=== PATIENT | male | born 1975 | race Caucasian/White ===

== ENCOUNTER 2017-08-22 10:00 | Emergency (ER) | payer OTHER ==
[~2017-08-22] VITALS: Ht 185.4 cm; Wt 81.6 kg
[2017-08-22] MEDS ORDERED: CEPHALEXIN500 M1 PO (12:28)
== END 2017-08-22 12:42 | disposition home or self-care (01) ==
LOC: ED 10:00
DX: S61.215A Laceration without foreign body of left ring finger without damage to nail, initial encounter (principal); F10.10 Alcohol abuse, uncomplicated; F17.200 Nicotine dependence, unspecified, uncomplicated; Y28.8XXA Contact with other sharp object, undetermined intent, initial encounter; Y93.89 Activity, other specified; Y92.89 Other specified places as the place of occurrence of the external cause; Y99.8 Other external cause status

== ENCOUNTER → 2019-02-01 | Outpatient (CLI) | payer OTHER ==
[~2019-02-01] MED LIST: Bactroban Oint22 GM T; CEPHALEXIN500 M1 PO; NORVASC10 MG PO
== END | disposition home or self-care (01) ==
LOC: RESCLI 01:33
DX: E66.3 Overweight (principal); F12.10 Cannabis abuse, uncomplicated; F10.10 Alcohol abuse, uncomplicated; I10 Essential (primary) hypertension; F17.200 Nicotine dependence, unspecified, uncomplicated; Z76.89 Persons encountering health services in other specified circumstances; Z71.6 Tobacco abuse counseling; Z79.899 Other long term (current) drug therapy; Z88.8 Allergy status to other drugs, medicaments and biological substances

== ENCOUNTER → 2019-02-08 | Outpatient (CLI) | payer OTHER ==
[2019-02-08 08:30] LABS: BASO # 0.1 10*3/uL (0.0-0.1); EOS # 0.2 10*3/uL (0.0-0.4); EOS % 3.4 % (1.0-4.0); HEMATOCRIT 45.8 % (42.0-52.0); HEMOGLOBIN 15.2 g/dl (14.0-18.0); LYMPH % 34.2 % (27.0-41.0); MEAN CELL VOLUME 98.7 fl (80.0-94.0); MEAN CORPUSCULAR HGB 32.8 pg (27.0-31.0); MEAN CORPUSCULAR HGB CONC 33.2 g/dl (33.0-37.0); MONO # 0.7 10*3/uL (0.1-1.0); MONO % 11.6 % (3.0-9.0); NEUT # 2.9 10*3/uL (2.3-7.9); NEUT % 49.6 % (47.0-73.0); PLATELET COUNT AUTOMATED 256 10*3/uL (130-400); RED BLOOD COUNT 4.64 10*6/uL (4.50-5.90); RED CELL DISTRI WIDTH 12.2 % (0-14.5); WHITE BLOOD COUNT 5.9 10*3/uL (4.8-10.8)
[2019-02-08 09:01] LABS: ALBUMIN 4.1 gm/dl (3.1-4.5); ALKALINE PHOSPHATASE 72 U/L (45-117); BUN 6 mg/dl (7-24); CHLORIDE 103 mmol/L (98-107); CHOLESTEROL 250 mg/dL (<200); CREATININE 0.84 mg/dL (0.70-1.30); HDL CHOLESTEROL 124 mg/dl (40-60); LDL CHOLESTEROL 107 mg/dL (9-159); POTASSIUM 4.3 mmol/L (3.5-5.1); SGOT/AST 46 IU/L (3-35); SGPT/ALT 44 U/L (12-78); SODIUM 137 mmol/L (136-145); TOTAL PROTEIN 8.1 gm/dL (6.4-8.2); TRIGLYCERIDES 97 mg/dl (<150); VLDL CHOLESTEROL 19 mg/dL (6-40)
== END | disposition home or self-care (01) ==
LOC: LAB 07:47
PROVIDERS: Student in an Organized Health Care Education/Training Program
DX: I10 Essential (primary) hypertension (principal)

== ENCOUNTER → 2019-03-08 | Outpatient (CLI) | payer OTHER | END | disposition home or self-care (01) | LOC: RESCLI 01:22 | DX: E78.2 Mixed hyperlipidemia (principal); E55.9 Vitamin D deficiency, unspecified; I10 Essential (primary) hypertension; R25.2 Cramp and spasm; F17.200 Nicotine dependence, unspecified, uncomplicated; Z88.8 Allergy status to other drugs, medicaments and biological substances; Z79.899 Other long term (current) drug therapy ==

== ENCOUNTER → 2019-06-19 | Outpatient (CLI) | payer OTHER | END | disposition home or self-care (01) | LOC: RESCLI 02:11 | DX: I10 Essential (primary) hypertension (principal); E55.9 Vitamin D deficiency, unspecified; F12.10 Cannabis abuse, uncomplicated; E78.2 Mixed hyperlipidemia; Z79.899 Other long term (current) drug therapy; Z88.8 Allergy status to other drugs, medicaments and biological substances ==

== ENCOUNTER → 2019-06-26 | Outpatient (CLI) | payer OTHER ==
[2019-06-26 07:46] LABS: BILIRUBIN NEGATIVE (NEGATIVE); BLOOD NEGATIVE (NEGATIVE); CLARITY CLEAR (CLEAR); COLOR YELLOW (YELLOW); GLUCOSE NEGATIVE (NEGATIVE); KETONE NEGATIVE (NEGATIVE); LEUKO ESTERASE NEGATIVE (NEGATIVE); NITRITE NEGATIVE (NEGATIVE); UROBILINOGEN 0.2 E.U./dl (0.2-1.0)
[2019-06-26 07:50] LABS: BASO # 0.1 10*3/uL (0.0-0.1); BASO % 1.4 % (0.0-1.0); EOS # 0.2 10*3/uL (0.0-0.4); EOS % 2.8 % (1.0-4.0); HEMATOCRIT 45.2 % (42.0-52.0); HEMOGLOBIN 14.9 g/dl (14.0-18.0); LYMPH # 1.9 10*3/uL (1.3-4.4); LYMPH % 33.1 % (27.0-41.0); MEAN CELL VOLUME 99.8 fl (80.0-94.0); MEAN CORPUSCULAR HGB 32.9 pg (27.0-31.0); MEAN PLATELET VOLUME 8.9 fl (9.6-12.3); MONO # 0.7 10*3/uL (0.1-1.0); NEUT # 2.8 10*3/uL (2.3-7.9); NEUT % 49.3 % (47.0-73.0); PLATELET COUNT AUTOMATED 259 10*3/uL (130-400); RED BLOOD COUNT 4.53 10*6/uL (4.50-5.90); RED CELL DISTRI WIDTH 12.5 % (0-14.5); WHITE BLOOD COUNT 5.7 10*3/uL (4.8-10.8)
[2019-06-26 08:09] LABS: MUCOUS 2+
[2019-06-26 08:22] LABS: ALBUMIN 4.1 gm/dl (3.1-4.5); ALKALINE PHOSPHATASE 72 U/L (45-117); BUN 8 mg/dl (7-24); CHLORIDE 100 mmol/L (98-107); CREATININE 0.84 mg/dL (0.70-1.30); SGOT/AST 35 IU/L (3-35); SGPT/ALT 42 U/L (12-78); SODIUM 134 mmol/L (136-145); TOTAL PROTEIN 8.1 gm/dL (6.4-8.2)
[2019-06-29 17:09] LABS: RENIN ACTIVITY (PLASMA) 4.793 ng/mL/hr (0.167-5.380)
[2019-07-02 04:09] LABS: METANEPHRINE, PLASMA <10 pg/mL (0-62); NORMETANEPHRINE, PLASMA 57 pg/mL (0-145)
[2019-07-02 09:06] LABS: ALDOSTERONE/RENIN RATIO 0.9 (0.0-30.0)
== END | disposition home or self-care (01) ==
LOC: LAB 07:16
PROVIDERS: Student in an Organized Health Care Education/Training Program
DX: I10 Essential (primary) hypertension (principal)

== ENCOUNTER → 2019-06-28 | Outpatient (CLI) | payer OTHER ==
[2019-07-01 14:08] LABS: CREATININE, RANDOM URINE 50.5 mg/dL (Not Estab.)
== END | disposition home or self-care (01) ==
LOC: LAB 00:44
PROVIDERS: Student in an Organized Health Care Education/Training Program
DX: I10 Essential (primary) hypertension (principal)

== ENCOUNTER → 2019-07-25 | Outpatient (CLI) | payer OTHER ==
--- NOTE | ~2019-07-25 | EKG ---
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
--- NOTE | ~2019-07-25 | HM ---
[place], [place] HOLTER MONITOR REPORT NAME: EDWIN JONES UNIT #: [id number] ROOM: DOCTOR: NAYELY VALDEZ BIRTHDATE: [birth year] DOS: 07/27/2019 HOLTER MONITOR REPORT This is a 24-hour Holter monitor. TEST DATE: 07/25/2019. Average heart rate 96 beats per minute with a minimum of 67 and maximum 158 beats per minute. IMPRESSION: 1. Baseline rhythm, normal sinus/sinus tachycardia. 2. Rare PVCs and PACs. 3. No SVT or VT. 4. No pauses or AV block. 5. No diary was returned. Dr. NAYELY VALDEZ MD CM:HOLTER:HOLTER MONITOR REPORT 1222 [id number] NAYELY VALDEZ
== END | disposition home or self-care (01) ==
LOC: RESCLI 00:38
DX: R00.2 Palpitations (principal); I10 Essential (primary) hypertension; E55.9 Vitamin D deficiency, unspecified; Z79.899 Other long term (current) drug therapy; Z88.8 Allergy status to other drugs, medicaments and biological substances

== ENCOUNTER → 2019-08-16 | Outpatient (CLI) | payer OTHER | END | disposition home or self-care (01) | LOC: US 10:30 | DX: I10 Essential (primary) hypertension (principal) ==

== ENCOUNTER → 2019-08-27 | Outpatient (CLI) | payer OTHER | END | disposition home or self-care (01) | LOC: RESCLI 00:56 | DX: E78.2 Mixed hyperlipidemia (principal); Z79.899 Other long term (current) drug therapy; F17.200 Nicotine dependence, unspecified, uncomplicated; F12.90 Cannabis use, unspecified, uncomplicated; Z72.89 Other problems related to lifestyle ==

== ENCOUNTER 2020-03-02 10:21 | Emergency (ER) | payer OTHER ==
[~2020-03-02] VITALS: Ht 182.8 cm; Wt 79.4 kg
== END 2020-03-02 11:26 | disposition home or self-care (01) ==
LOC: ED 10:21
DX: H02.824 Cysts of left upper eyelid (principal); I10 Essential (primary) hypertension

== ENCOUNTER → 2020-03-27 | Outpatient (CLI) | payer OTHER | END | disposition home or self-care (01) | LOC: RESCLI 03:48 | DX: I10 Essential (primary) hypertension (principal); E55.9 Vitamin D deficiency, unspecified; F41.9 Anxiety disorder, unspecified; Z72.0 Tobacco use; Z71.6 Tobacco abuse counseling; Z79.899 Other long term (current) drug therapy; Z98.890 Other specified postprocedural states ==

== ENCOUNTER 2020-06-19 07:33 | Emergency (ER) | payer OTHER ==
[~2020-06-19] VITALS: Ht 185.4 cm; Wt 79.4 kg
[2020-06-19] MEDS ORDERED: VALSARTAN320 MG PO (07:40)
[2020-06-19] MEDS ORDERED: AMLODIPINE BESY10 MG PO (07:40)
[2020-06-19] MEDS ORDERED: PERCOCET 5-3251 EACH PO (11:56)
[2020-06-19] MEDS ORDERED: Motrin,Rufen800 MG PO (11:56)
== END 2020-06-19 11:58 | disposition home or self-care (01) ==
LOC: ED 07:33
DX: S20.20XA Contusion of thorax, unspecified, initial encounter (principal); I10 Essential (primary) hypertension; Z79.899 Other long term (current) drug therapy; X58.XXXA Exposure to other specified factors, initial encounter; Y93.89 Activity, other specified; Y92.89 Other specified places as the place of occurrence of the external cause; Y99.8 Other external cause status

== ENCOUNTER → 2020-06-23 | Outpatient (CLI) | payer OTHER ==
[~2020-06-23] MED LIST changes: +AMLODIPINE BESY10 MG PO; +Motrin,Rufen800 MG PO; +PERCOCET 5-3251 EACH PO; +VALSARTAN320 MG PO
== END | disposition home or self-care (01) ==
LOC: RESCLI 13:10
PROVIDERS: ATTEND Internal Medicine
DX: Z09 Encounter for follow-up examination after completed treatment for conditions other than malignant neoplasm (principal); I10 Essential (primary) hypertension; E78.2 Mixed hyperlipidemia; E55.9 Vitamin D deficiency, unspecified; R07.81 Pleurodynia; S22.49XD Multiple fractures of ribs, unspecified side, subsequent encounter for fracture with routine healing; Z23 Encounter for immunization; X58.XXXD Exposure to other specified factors, subsequent encounter

== ENCOUNTER → 2020-09-15 | Outpatient (CLI) | payer OTHER | END | disposition home or self-care (01) | LOC: RESCLI 09-03 11:07 | PROVIDERS: ATTEND Internal Medicine | DX: I10 Essential (primary) hypertension (principal); E55.9 Vitamin D deficiency, unspecified; F12.10 Cannabis abuse, uncomplicated; R20.8 Other disturbances of skin sensation; Z79.899 Other long term (current) drug therapy; Z72.0 Tobacco use ==

== ENCOUNTER → 2020-12-29 | Outpatient (CLI) | payer OTHER | END | disposition home or self-care (01) | LOC: RESCLI 00:51 | PROVIDERS: ATTEND Internal Medicine | DX: I10 Essential (primary) hypertension (principal); E55.9 Vitamin D deficiency, unspecified; F17.200 Nicotine dependence, unspecified, uncomplicated; F11.90 Opioid use, unspecified, uncomplicated; Z79.899 Other long term (current) drug therapy; Z98.890 Other specified postprocedural states ==

== ENCOUNTER → 2021-06-01 | Outpatient (CLI) | payer OTHER | END | disposition home or self-care (01) | LOC: RESCLI 03:08 | PROVIDERS: ATTEND Internal Medicine | DX: I10 Essential (primary) hypertension (principal); E55.9 Vitamin D deficiency, unspecified; B35.6 Tinea cruris; N49.2 Inflammatory disorders of scrotum; R59.0 Localized enlarged lymph nodes; F10.10 Alcohol abuse, uncomplicated; F12.10 Cannabis abuse, uncomplicated; Z71.6 Tobacco abuse counseling; Z72.0 Tobacco use; Z79.899 Other long term (current) drug therapy ==

== ENCOUNTER → 2022-06-08 | Outpatient (CLI) | payer OTHER ==
[2022-06-08 10:02] LABS: BASO # 0.1 10*3/uL (0.0-0.1); BASO % 1.1 % (0.0-1.0); EOS # 0.1 10*3/uL (0.0-0.4); EOS % 1.1 % (1.0-4.0); LYMPH # 0.9 10*3/uL (1.3-4.4); LYMPH % 14.6 % (27.0-41.0); MEAN CELL VOLUME 98.6 fl (80.0-94.0); MEAN CORPUSCULAR HGB 34.3 pg (27.0-31.0); MEAN CORPUSCULAR HGB CONC 34.8 g/dl (33.0-37.0); MEAN PLATELET VOLUME 9.2 fl (9.6-12.3); MONO # 0.6 10*3/uL (0.1-1.0); MONO % 9.9 % (3.0-9.0); NEUT # 4.6 10*3/uL (2.3-7.9); NEUT % 73.1 % (47.0-73.0); PLATELET COUNT AUTOMATED 183 10*3/uL (130-400); RED BLOOD COUNT 4.26 10*6/uL (4.50-5.90); RED CELL DISTRI WIDTH 12.5 % (0-14.5); WHITE BLOOD COUNT 6.3 10*3/uL (4.8-10.8)
[2022-06-08 10:30] LABS: ALKALINE PHOSPHATASE 106 U/L (45-117); BUN 5 mg/dl (7-24); CHLORIDE 99 mmol/L (98-107); CHOLESTEROL 269 mg/dL (<200); CREATININE 0.63 mg/dL (0.70-1.30); LDL CHOLESTEROL 112 mg/dL (9-159); POTASSIUM 3.9 mmol/L (3.5-5.1); SGOT/AST 96 IU/L (3-35); SGPT/ALT 121 U/L (12-78); SODIUM 131 mmol/L (136-145); TOTAL PROTEIN 8.4 gm/dL (6.4-8.2); TRIGLYCERIDES 96 mg/dl (<150)
== END | disposition home or self-care (01) ==
LOC: RESCLI 08:55
PROVIDERS: Internal Medicine; ATTEND Student in an Organized Health Care Education/Training Program
DX: Z00.00 Encounter for general adult medical examination without abnormal findings (principal); I10 Essential (primary) hypertension; F12.10 Cannabis abuse, uncomplicated; Z71.6 Tobacco abuse counseling; F10.10 Alcohol abuse, uncomplicated; Z98.890 Other specified postprocedural states; Z79.899 Other long term (current) drug therapy; F17.200 Nicotine dependence, unspecified, uncomplicated; Z72.89 Other problems related to lifestyle

== ENCOUNTER → 2022-08-02 | Outpatient (CLI) | payer OTHER ==
[2022-08-02 17:04] LABS: HEMATOCRIT 30.1 % (42.0-52.0); MEAN CORPUSCULAR HGB 31.9 pg (27.0-31.0); MEAN CORPUSCULAR HGB CONC 33.6 g/dl (33.0-37.0); MEAN PLATELET VOLUME 7.8 fl (9.6-12.3); PLATELET COUNT AUTOMATED 633 10*3/uL (130-400); RED BLOOD COUNT 3.17 10*6/uL (4.50-5.90); RED CELL DISTRI WIDTH 13.2 % (0-14.5); WHITE BLOOD COUNT 21.1 10*3/uL (4.8-10.8)
[2022-08-02 17:06] LABS: MANUAL DIFF REFLEX YES
[2022-08-02 17:25] LABS: PLATELET SUFFICIENCY HIGH (NORMAL); POLYCHROMASIA SLIGHT; TOTAL CELLS COUNTED 100 #CELLS
[2022-08-02 17:26] LABS: BURR CELLS FEW; TARGET CELLS FEW
[2022-08-02 17:40] LABS: ALKALINE PHOSPHATASE 126 U/L (45-117); BUN 24 mg/dl (7-24); CHLORIDE 88 mmol/L (98-107); POTASSIUM 4.9 mmol/L (3.5-5.1); SGOT/AST 30 IU/L (3-35); SGPT/ALT 51 U/L (12-78); SODIUM 121 mmol/L (136-145); TOTAL PROTEIN 7.4 gm/dL (6.4-8.2)
== END | disposition home or self-care (01) ==
LOC: RESCLI 15:41
PROVIDERS: Internal Medicine; ATTEND Internal Medicine
DX: R00.0 Tachycardia, unspecified (principal); J06.9 Acute upper respiratory infection, unspecified; I10 Essential (primary) hypertension; Z20.822 Contact with and (suspected) exposure to COVID-19; F17.200 Nicotine dependence, unspecified, uncomplicated; Z72.89 Other problems related to lifestyle; Z82.49 Family history of ischemic heart disease and other diseases of the circulatory system; Z98.890 Other specified postprocedural states; Z79.899 Other long term (current) drug therapy

== ENCOUNTER 2022-08-03 08:22 | Emergency (ER) | payer OTHER ==
[~2022-08-03] VITALS: Ht 182.8 cm; Wt 69.9 kg
[2022-08-03 08:32] VITALS: BP 74/39
[2022-08-03 09:01] LABS: MEAN CELL VOLUME 95.1 fl (80.0-94.0); MEAN CORPUSCULAR HGB 32.2 pg (27.0-31.0); MEAN CORPUSCULAR HGB CONC 33.9 g/dl (33.0-37.0); MEAN PLATELET VOLUME 7.8 fl (9.6-12.3); PLATELET COUNT AUTOMATED 651 10*3/uL (130-400); RED BLOOD COUNT 3.26 10*6/uL (4.50-5.90); RED CELL DISTRI WIDTH 13.2 % (0-14.5); WHITE BLOOD COUNT 20.1 10*3/uL (4.8-10.8)
[2022-08-03 09:03] LABS: MANUAL DIFF REFLEX YES
[2022-08-03 09:21] LABS: ALKALINE PHOSPHATASE 125 U/L (45-117); BUN 27 mg/dl (7-24); CHLORIDE 88 mmol/L (98-107); CREATININE 1.31 mg/dL (0.70-1.30); POTASSIUM 4.5 mmol/L (3.5-5.1); SGPT/ALT 57 U/L (12-78); SODIUM 121 mmol/L (136-145); TOTAL PROTEIN 7.4 gm/dL (6.4-8.2)
[2022-08-03 09:36] LABS: PLATELET SUFFICIENCY HIGH (NORMAL); TOTAL CELLS COUNTED 100 #CELLS; TOXIC GRANULATION MODERATE
[2022-08-03 09:37] LABS: BURR CELLS FEW; POLYCHROMASIA SLIGHT; VACUOLATION OF NEUTROPHILS SLIGHT
[2022-08-03 09:40] VITALS: BP 90/50
[2022-08-03 10:47] VITALS: BP 86/46
[2022-08-03 11:04] VITALS: BP 82/52
[2022-08-03 11:37] VITALS: BP 92/51
[2022-08-03 14:06] VITALS: BP 99/57
== END 2022-08-03 14:50 | disposition short-term general hospital (02) ==
LOC: ED 08:22 → EDHOLD 10:47 → ED 10:47
PROVIDERS: Family Medicine
DX: A41.9 Sepsis, unspecified organism (principal); Z20.822 Contact with and (suspected) exposure to COVID-19; J18.9 Pneumonia, unspecified organism

== ENCOUNTER → 2022-08-16 | Outpatient (CLI) | payer OTHER ==
[2022-08-16 16:35] LABS: BASO # 0.1 10*3/uL (0.0-0.1); BASO % 1.1 % (0.0-1.0); EOS # 0.1 10*3/uL (0.0-0.4); EOS % 0.8 % (1.0-4.0); HEMATOCRIT 30.5 % (42.0-52.0); LYMPH # 2.8 10*3/uL (1.3-4.4); LYMPH % 31.1 % (27.0-41.0); MEAN CELL VOLUME 104.1 fl (80.0-94.0); MEAN CORPUSCULAR HGB 32.4 pg (27.0-31.0); MEAN CORPUSCULAR HGB CONC 31.1 g/dl (33.0-37.0); MEAN PLATELET VOLUME 7.7 fl (9.6-12.3); MONO # 0.8 10*3/uL (0.1-1.0); MONO % 9.3 % (3.0-9.0); NEUT # 5.2 10*3/uL (2.3-7.9); PLATELET COUNT AUTOMATED 694 10*3/uL (130-400); RED BLOOD COUNT 2.93 10*6/uL (4.50-5.90); RED CELL DISTRI WIDTH 16.4 % (0-14.5)
[2022-08-16 16:56] LABS: CHLORIDE 99 mmol/L (98-107); SODIUM 133 mmol/L (136-145)
[2022-08-16 17:04] LABS: ALKALINE PHOSPHATASE 90 U/L (46-116); BUN 6 mg/dl (9-23); CREATININE 0.55 mg/dL (0.70-1.30)
[2022-08-16 17:05] LABS: SGPT/ALT 20 U/L (10-49)
== END | disposition home or self-care (01) ==
LOC: RESCLI 00:40
PROVIDERS: Student in an Organized Health Care Education/Training Program; ATTEND Internal Medicine
DX: J98.4 Other disorders of lung (principal); I10 Essential (primary) hypertension; Z79.899 Other long term (current) drug therapy; F10.20 Alcohol dependence, uncomplicated; F12.20 Cannabis dependence, uncomplicated; F17.200 Nicotine dependence, unspecified, uncomplicated

== ENCOUNTER → 2022-08-31 | Outpatient (CLI) | payer OTHER | END | disposition home or self-care (01) | LOC: CT 08:00 | PROVIDERS: ATTEND Internal Medicine | DX: J18.8 Other pneumonia, unspecified organism (principal) ==

== ENCOUNTER → 2024-02-05 | Outpatient (CLI) | payer OTHER ==
[2024-02-05 07:52] LABS: BASO # 0.1 10*3/uL (0.0-0.1); BASO % 0.9 % (0.0-1.0); EOS # 0.1 10*3/uL (0.0-0.4); EOS % 1.7 % (1.0-4.0); HEMATOCRIT 42.3 % (42.0-52.0); LYMPH # 1.3 10*3/uL (1.3-4.4); LYMPH % 19.3 % (27.0-41.0); MEAN CELL VOLUME 99.1 fl (80.0-94.0); MEAN CORPUSCULAR HGB 35.1 pg (27.0-31.0); MEAN CORPUSCULAR HGB CONC 35.5 g/dl (33.0-37.0); MEAN PLATELET VOLUME 8.9 fl (9.6-12.3); MONO # 0.9 10*3/uL (0.1-1.0); MONO % 13.3 % (3.0-9.0); NEUT # 4.2 10*3/uL (2.3-7.9); NEUT % 64.5 % (47.0-73.0); PLATELET COUNT AUTOMATED 175 10*3/uL (130-400); RED BLOOD COUNT 4.27 10*6/uL (4.50-5.90); RED CELL DISTRI WIDTH 13.1 % (0-14.5); WHITE BLOOD COUNT 6.5 10*3/uL (4.8-10.8)
[2024-02-05 08:32] LABS: ALKALINE PHOSPHATASE 92 U/L (46-116); CHLORIDE 98 mmol/L (98-107); POTASSIUM 4.3 mmol/L (3.4-5.1); SGPT/ALT 89 U/L (5-49); TOTAL PROTEIN 8.1 gm/dL (6.0-8.0)
[2024-02-05 08:35] LABS: BUN < 5 mg/dl (9-23)
== END | disposition home or self-care (01) ==
LOC: LAB 07:33
PROVIDERS: ATTEND Nurse Practitioner Family
DX: I10 Essential (primary) hypertension (principal)

== ENCOUNTER 2024-07-03 13:43 | Emergency (ER) | payer OTHER ==
[~2024-07-03] VITALS: Ht 185.4 cm; Wt 78.9 kg
[2024-07-03] MEDS ORDERED: Ketorolac Tromethamine 30 MG/ML VIAL IM ONE (14:10)
== END 2024-07-03 18:56 | disposition home or self-care (01) ==
LOC: ED 13:43
DX: S96.911A Strain of unspecified muscle and tendon at ankle and foot level, right foot, initial encounter (principal); I10 Essential (primary) hypertension; F10.10 Alcohol abuse, uncomplicated; F17.200 Nicotine dependence, unspecified, uncomplicated; W10.8XXA Fall (on) (from) other stairs and steps, initial encounter; Y93.89 Activity, other specified; Y92.009 Unspecified place in unspecified non-institutional (private) residence as the place of occurrence of the external cause; Y99.8 Other external cause status

== ENCOUNTER → 2024-08-13 | Outpatient (CLI) | payer OTHER ==
[2024-08-13 09:39] LABS: BASO # 0.1 10*3/uL (0.0-0.1); BASO % 1.2 % (0.0-1.0); EOS # 0.1 10*3/uL (0.0-0.4); HEMATOCRIT 41.9 % (42.0-52.0); MEAN CELL VOLUME 98.6 fl (80.0-94.0); MEAN CORPUSCULAR HGB 34.4 pg (27.0-31.0); MEAN CORPUSCULAR HGB CONC 34.8 g/dl (33.0-37.0); MEAN PLATELET VOLUME 8.2 fl (9.6-12.3); MONO # 0.8 10*3/uL (0.1-1.0); MONO % 11.8 % (3.0-9.0); NEUT # 4.3 10*3/uL (2.3-7.9); NEUT % 61.5 % (47.0-73.0); PLATELET COUNT AUTOMATED 333 10*3/uL (130-400); RED BLOOD COUNT 4.25 10*6/uL (4.50-5.90); RED CELL DISTRI WIDTH 13.1 % (0-14.5); WHITE BLOOD COUNT 6.9 10*3/uL (4.8-10.8)
[2024-08-13 10:44] LABS: ALKALINE PHOSPHATASE 111 U/L (46-116); CHLORIDE 99 mmol/L (98-107); CHOLESTEROL 233 mg/dL (<200); LDL CHOLESTEROL 118 mg/dL (9-159); POTASSIUM 3.9 mmol/L (3.4-5.1); SGPT/ALT 30 U/L (5-49); TRIGLYCERIDES 58 mg/dl (<150)
[2024-08-13 11:39] LABS: BUN < 5 mg/dl (9-23)
== END | disposition home or self-care (01) ==
LOC: LAB 09:06
PROVIDERS: ATTEND Nurse Practitioner Family
DX: Z00.00 Encounter for general adult medical examination without abnormal findings (principal); I10 Essential (primary) hypertension; E78.5 Hyperlipidemia, unspecified; G62.9 Polyneuropathy, unspecified

== ENCOUNTER 2024-08-31 11:10 | Emergency (ER) | payer OTHER ==
[~2024-08-31] VITALS: Ht 185.4 cm; Wt 79.8 kg
[2024-08-31] MEDS ORDERED: GABAPENTIN100 M2 PO (11:54)
[2024-08-31] MEDS ORDERED: OLMESARTAN (11:55)
[2024-08-31] MEDS ORDERED: TERAZOSIN HCL5 M1 PO (11:55)
[2024-08-31] MEDS ORDERED: AMLODIPINE (11:55)
[2024-08-31] MEDS ORDERED: Acetaminophen/Hydrocodone 5 MG/325 MG TABLET PO ONE (12:05)
[2024-08-31 12:17] LABS: BASO # 0.1 10*3/uL (0.0-0.1); BASO % 0.8 % (0.0-1.0); EOS % 0.2 % (1.0-4.0); HEMATOCRIT 41.8 % (42.0-52.0); MEAN CELL VOLUME 98.8 fl (80.0-94.0); MEAN CORPUSCULAR HGB 34.3 pg (27.0-31.0); MEAN CORPUSCULAR HGB CONC 34.7 g/dl (33.0-37.0); MEAN PLATELET VOLUME 8.2 fl (9.6-12.3); MONO # 0.9 10*3/uL (0.1-1.0); MONO % 10.1 % (3.0-9.0); NEUT # 6.9 10*3/uL (2.3-7.9); NEUT % 77.4 % (47.0-73.0); PLATELET COUNT AUTOMATED 230 10*3/uL (130-400); RED BLOOD COUNT 4.23 10*6/uL (4.50-5.90); RED CELL DISTRI WIDTH 13.1 % (0-14.5); WHITE BLOOD COUNT 8.9 10*3/uL (4.8-10.8)
[2024-08-31 12:35] LABS: CHLORIDE 97 mmol/L (98-107); ETHYL ALCOHOL 128.6 mg/dl (<3); POTASSIUM 4.3 mmol/L (3.4-5.1)
[2024-08-31 12:48] LABS: BUN < 5 mg/dl (9-23)
[2024-08-31] MEDS ORDERED: SODIUM CHLORIDE 0.9% 1,000 ML IV ONE (12:50)
[2024-08-31] MEDS ORDERED: IOHEXOL 350 MG/ML 100 ML VIAL IV ONE (13:20)
[2024-08-31] MEDS ORDERED: SODIUM CHLORIDE 0.9% 100 ML BAG IV ONE (13:20)
[2024-08-31] MEDS ORDERED: Ketorolac Tromethamine 30 MG/ML VIAL IV ONE (13:45)
[2024-08-31] MEDS ORDERED: HYDROCODONE-AC1 EAC1 PO (15:29)
[2024-08-31] MEDS ORDERED: fentaNYL CITRATE 100 MCG/2 ML VIAL IV ONE (15:30)
== END 2024-08-31 15:55 | disposition home or self-care (01) ==
LOC: ED 11:10
PROVIDERS: Physician Assistant Medical
DX: S22.42XA Multiple fractures of ribs, left side, initial encounter for closed fracture (principal); I10 Essential (primary) hypertension; R07.89 Other chest pain; F17.210 Nicotine dependence, cigarettes, uncomplicated; F10.10 Alcohol abuse, uncomplicated; Z79.899 Other long term (current) drug therapy; W22.03XA Walked into furniture, initial encounter; Y93.89 Activity, other specified; Y92.89 Other specified places as the place of occurrence of the external cause; Y99.8 Other external cause status

== ENCOUNTER 2024-10-31 07:43 | Emergency (ER) | payer OTHER ==
[~2024-10-31 07:43] MED LIST changes: +AMLODIPINE; +GABAPENTIN100 M2 PO; +HYDROCODONE-AC1 EAC1 PO; +OLMESARTAN; +TERAZOSIN HCL5 M1 PO
== END 2024-10-31 09:07 | disposition left against medical advice (07) ==
LOC: ED 07:43
DX: R04.2 Hemoptysis (principal); Z53.21 Procedure and treatment not carried out due to patient leaving prior to being seen by health care provider

== ENCOUNTER → 2025-02-17 | Outpatient (CLI) | payer OTHER ==
[2025-02-17 08:17] LABS: BASO # 0.1 10*3/uL (0.0-0.1); BASO % 1.6 % (0.0-1.0); EOS # 0.3 10*3/uL (0.0-0.4); HEMATOCRIT 38.8 % (42.0-52.0); MEAN CELL VOLUME 96.8 fl (80.0-94.0); MEAN CORPUSCULAR HGB 33.4 pg (27.0-31.0); MEAN CORPUSCULAR HGB CONC 34.5 g/dl (33.0-37.0); MEAN PLATELET VOLUME 8.7 fl (9.6-12.3); MONO # 0.7 10*3/uL (0.1-1.0); NEUT # 2.3 10*3/uL (2.3-7.9); PLATELET COUNT AUTOMATED 227 10*3/uL (130-400); RED BLOOD COUNT 4.01 10*6/uL (4.50-5.90); RED CELL DISTRI WIDTH 13.2 % (0-14.5); WHITE BLOOD COUNT 4.5 10*3/uL (4.8-10.8)
[2025-02-17 09:57] LABS: ALKALINE PHOSPHATASE 100 U/L (46-116); CHLORIDE 93 mmol/L (98-107); CHOLESTEROL 221 mg/dL (<200); LDL CHOLESTEROL 92 mg/dL (9-159); POTASSIUM 4.2 mmol/L (3.4-5.1); SGPT/ALT 43 U/L (5-49); TOTAL PROTEIN 7.8 gm/dL (6.0-8.0); TRIGLYCERIDES 97 mg/dl (<150)
[2025-02-17 10:14] LABS: BUN < 5 mg/dl (9-23)
== END | disposition home or self-care (01) ==
LOC: LAB 07:36
PROVIDERS: ATTEND Nurse Practitioner Family
DX: I10 Essential (primary) hypertension (principal); K74.60 Unspecified cirrhosis of liver; E78.5 Hyperlipidemia, unspecified

== ENCOUNTER → 2025-08-05 | Outpatient (CLI) | payer OTHER ==
[2025-08-05 07:42] LABS: BASO # 0.1 10*3/uL (0.0-0.1); BASO % 0.7 % (0.0-1.0); EOS # 0.2 10*3/uL (0.0-0.4); EOS % 2.1 % (1.0-4.0); MEAN CELL VOLUME 101.0 fl (80.0-94.0); MEAN CORPUSCULAR HGB 34.5 pg (27.0-31.0); MEAN PLATELET VOLUME 7.9 fl (9.6-12.3); MONO # 1.3 10*3/uL (0.1-1.0); MONO % 14.1 % (3.0-9.0); NEUT # 5.8 10*3/uL (2.3-7.9); NEUT % 64.2 % (47.0-73.0); NUCLEATED RED BLOOD CELL 0.0 % (0.0-0.0); NUCLEATED RED BLOOD CELL 0.0 10*3/uL (0.0-0.0); PLATELET COUNT AUTOMATED 328 10*3/uL (130-400); RED CELL DISTRI WIDTH 12.1 % (0-14.5)
[2025-08-05 08:03] LABS: LDL CHOLESTEROL 102 mg/dL (9-159)
[2025-08-05 08:04] LABS: SGPT/ALT 14 U/L (5-49)
[2025-08-05 08:05] LABS: BUN < 5 mg/dl (9-23)
== END | disposition home or self-care (01) ==
LOC: LAB 07:24
PROVIDERS: Nurse Practitioner Family
DX: K74.60 Unspecified cirrhosis of liver (principal); G62.9 Polyneuropathy, unspecified; I10 Essential (primary) hypertension; E78.5 Hyperlipidemia, unspecified; Z12.5 Encounter for screening for malignant neoplasm of prostate